=== PATIENT | female | born 1990 | race Caucasian/White ===

== ENCOUNTER 2019-07-15 12:30 | Emergency (ER) | payer OTHER ==
[~2019-07-15] VITALS: Ht 157.5 cm; Wt 64.9 kg
[~2019-07-15 12:30] MED LIST: APAP500 PO; DERMOPLAST SPRA56 ML; HYDROCORTISONE30 G9 RE; IBUPROFEN 600600 M1 PO; LANOLIN56 GM; TUCKS MEDICATE1 EAC1
[2019-07-15 13:17] LABS: ABSOLUTE NEUTROPHILS 6.4 thou/uL (1.4-8.2); BASOPHILS 0.4 % (0.0-2.0); EOSINOPHILS 1.1 % (0.0-3.0); HEMATOCRIT 40.8 % (37.0-47.0); HEMOGLOBIN 13.6 gm/dL (12.0-15.0); LYMPHOCYTES 20.9 % (24.0-44.0); MCH 28.8 pg (26.0-34.0); MCHC 33.2 g/dL (28.0-37.0); MCV 86.7 fL (80.0-100.0); MONOCYTES 6.7 % (1.0-8.0); PLATELET COUNT 339 thou/uL (150-400); POLYS 70.9 % (36.0-66.0); RDW 12.4 % (10.5-14.5); WBC 9.1 thou/uL (4.0-11.0)
[2019-07-15 13:34] LABS: CALCIUM 9.7 mg/dL (8.5-10.1); CREATININE 0.6 mg/dL (0.6-1.0); POTASSIUM 3.3 mmol/L (3.5-5.1)
[2019-07-15 13:41] LABS: ALBUMIN 3.8 g/dL (3.4-5.0); TOTAL BILIRUBIN 0.2 mg/dL (<0.1-1.0); TOTAL PROTEIN 7.8 g/dL (6.4-8.2)
[2019-07-15 13:48] LABS: URINE BILIRUBIN NEGATIVE (Negative); URINE BLOOD NEGATIVE (Negative); URINE CLARITY CLEAR; URINE COLOR YELLOW; URINE GLUCOSE-RANDOM* NEGATIVE (Negative); URINE KETONES NEGATIVE (Negative); URINE LEUKOCYTES-REFLEX TRACE (Negative); URINE NITRITE-REFLEX NEGATIVE (Negative); URINE PROTEIN (DIPSTICK) NEGATIVE (Negative); URINE SPECIFIC GRAVITY <= 1.005 (1.005-1.035); URINE UROBILINOGEN 0.2 E.U./dl (0.2-1.0)
[2019-07-15] MEDS ORDERED: POTASSIUM20 PO (14:14)
--- NOTE | 2019-07-15 14:20 | EKG ---
[facility] [place] [address] ELECTROCARDIOGRAM REPORT Name: ROSELYN PEARSON Room #: REG [facility].#: [id number] Admission: 07/15/19 Attend Phys: Discharge: Date of : 89 Report #: [id number] THIS REPORT FOR: cc: FAM - Family physician unknown FAM - Family physician unknown Chevy Fink MD ~ THIS REPORT FOR: //name// [facility] ED Test Date: 2019-07-15 Test Time: 13:38:26 Pat Name: ROSELYN PEARSON Department: Room: Gender: F [place] Fin[employer]: [facility] : 1990 Requested By: Cathie Vasquez Order Number: [id number] MD: Chevy Fink Measurements Intervals [place] Rate: 83 P: 70 CO: 160 QRS: 51 QRSD: 96 T: 12 QT: 366 QTc: 430 Interpretive Statements Sinus rhythm No previous ECG available for comparison Electronically Signed On 07-15-2019 14:19:04 CDT by Chevy Fink [email or web address] <ELECTRONICALLY SIGNED> By: Chevy Fink MD 07/15/19 1419 1338 [id number] MD REECE Longoria
[2019-07-15 14:56] VITALS: BP 119/54
== END 2019-07-15 15:00 | disposition home or self-care (01) ==
LOC: ER 12:30
PROVIDERS: Physician Assistant
DX: O26.891 Other specified pregnancy related conditions, first trimester (principal); Z3A.11 11 weeks gestation of pregnancy; R55 Syncope and collapse; R42 Dizziness and giddiness; E87.6 Hypokalemia; Z79.899 Other long term (current) drug therapy